=== PATIENT | female | born 1980 | race African-American/Black ===

== ENCOUNTER 2017-09-28 16:28 | Emergency (ER) | payer OTHER ==
[~2017-09-28] VITALS: Ht 162.6 cm; Wt 86.2 kg
[~2017-09-28 16:28] MED LIST: ACETAMINOPHEN-1 EAC1 PO; CIPROFLOXACIN500 M1 PO; CLEOCIN HCL150 MG PO; COSOPT OCUMETER10 M1 OP; COSOPT OCUMETER10 M1 OPHTHALMIC; DIFLUCAN150 MG PO; FLONASE16 GM INH; FOLIC ACID; LEVSIN0.125 MG PO; METHOTREXATE; NORCO 5-325 TA1 EACH PO; PHENERGAN 25 MG25 M1 PO; PRED FORTE 1% EY5 M1 OP; PREDNISONE; PREDNISONE 20 M20 MG PO; TYLENOL325 MG PO; ULTRAM 50MG TAB50 MG PO; URISTAT; ZOFRAN4 MG PO; ZPAK PO
[2017-09-28] MEDS ORDERED: MOBIC7.5 MG PO (17:51)
[2017-09-28] MEDS ORDERED: PREDNISONE 20 M20 MG PO (17:51)
[2017-09-28 18:09] VITALS: BP 120/76
== END 2017-09-28 18:21 | disposition home or self-care (01) ==
LOC: ER 16:28
DX: M25.462 Effusion, left knee (principal); M25.562 Pain in left knee; K21.9 Gastro-esophageal reflux disease without esophagitis

== ENCOUNTER 2017-11-05 00:11 | Emergency (ER) | payer OTHER ==
[~2017-11-05] VITALS: Ht 162.6 cm; Wt 76.7 kg
[~2017-11-05 00:11] MED LIST changes: +MOBIC7.5 MG PO
[2017-11-05 02:58] LABS: HEMATOCRIT 34.5 % (37.0-47.0); HEMOGLOBIN 11.7 gm/dL (12.0-15.0); MCHC 33.9 g/dL (28.0-37.0); MCV 73.9 fL (80.0-100.0); PLATELET COUNT 327 thou/uL (150-400); RBC 4.67 mil/uL (4.20-5.00); RDW 16.4 % (10.5-14.5); WBC 8.1 thou/uL (4.0-11.0)
[2017-11-05 03:03] LABS: CALCIUM 8.6 mg/dL (8.5-10.1); CREATININE 0.8 mg/dL (0.6-1.0); POTASSIUM 3.3 mmol/L (3.5-5.1)
[2017-11-05 04:00] LABS: ABSOLUTE NEUTROPHILS 5.3 thou/uL (1.4-8.2); ANISOCYTOSIS 1+; MICROCYTES 1+
[2017-11-05] MEDS ORDERED: SENNA-DOCUSATE1 EACH PO (06:11)
[2017-11-05] MEDS ORDERED: IBUPROFEN 600600 M1 PO (06:11)
[2017-11-05] MEDS ORDERED: NORCO 5-325 TA1 EACH PO (06:11)
[2017-11-05 06:30] VITALS: BP 103/59
== END 2017-11-05 06:35 | disposition home or self-care (01) ==
LOC: ER 00:11
PROVIDERS: Emergency Medicine
DX: R60.0 Localized edema (principal); K21.9 Gastro-esophageal reflux disease without esophagitis

== ENCOUNTER 2017-11-07 16:29 | Emergency (ER) | payer OTHER ==
[~2017-11-07] VITALS: Ht 162.6 cm; Wt 76.2 kg
[~2017-11-07 16:29] MED LIST changes: +IBUPROFEN 600600 M1 PO; +SENNA-DOCUSATE1 EACH PO
[2017-11-07] MEDS ORDERED: NAPROSYN500 MG PO (18:05)
[2017-11-07] MEDS ORDERED: ULTRAM 50MG TAB50 MG PO (18:05)
[2017-11-07 18:45] VITALS: BP 109/73
== END 2017-11-07 18:46 ==
LOC: ER 16:29
DX: M72.2 Plantar fascial fibromatosis (principal); K21.9 Gastro-esophageal reflux disease without esophagitis